=== PATIENT | female | born 1940 | race African-American/Black ===

== ENCOUNTER 2022-11-01 15:59 | Emergency (ER) | payer OTHER ==
[~2022-11-01] VITALS: Ht 157.5 cm; Wt 91.0 kg
[2022-11-01] MEDS ORDERED: SODIUM CHLORIDE 0.9% 1,000 ML IV ONE (17:30)
[2022-11-01 17:33] LABS: BASOPHILS % 0.6 % (0.0-2.0); EOSINOPHILS % 1.1 % (0.0-5.0); HEMOGLOBIN. 9.2 g/dL (12.0-16.0); LYMPHOCYTES % 10.1 % (20.0-50.0); MEAN CORPUSCULAR HEMOGLOBIN 27.7 pg (28.0-32.0); MEAN CORPUSCULAR VOLUME 86.8 fL (81.0-99.0); MEAN PLATELET VOLUME 9.2 fl (7.4-10.4); MONOCYTES % 6.8 % (2.0-8.0); NEUTROPHILS % 81.4 % (40.0-76.0); PLATELET 233 x1000/uL (130-400); RED BLOOD CELL COUNT 3.34 mill/uL (4.2-5.4); RED CELL DISTRIBUTION WIDTH 13.6 % (11.6-14.6)
[2022-11-01 17:40] LABS: CHLORIDE 102 mEq/L (98-107)
[2022-11-01 17:49] LABS: B-HCG QUANTITATIVE < 1 mIU/mL (<3)
[2022-11-01 18:17] LABS: CLARITY URINE TURBID (CLEAR); COLOR URINE YELLOW (YELLOW); KETONES URINE NEGATIVE (NEGATIVE); LEUKOCYTE ESTERASE URINE 3+ (NEGATIVE); NITRITE URINE POSITIVE (NEGATIVE); OCCULT BLOOD URINE 1+ (NEGATIVE); PH URINE 5.5 (4.5-8.0); PROTEIN URINE 3+ (NEGATIVE); SPECIFIC GRAVITY URINE 1.011 (1.005-1.030); UROBILINOGEN URINE 0.2 E.U./dL (0.2-1.0)
[2022-11-01] MEDS ORDERED: FUROSEMIDE 100MG/10ML VIAL IV STA (20:11)
[2022-11-01] MEDS ORDERED: SODIUM BICARBONATE 8.4% 1 MEQ/ML 50ML SYR IV ONE (20:15)
[2022-11-01] MEDS ORDERED: ALBUTEROL (0.083%) 2.5MG/3ML NEB HHN ONE (20:15)
[2022-11-01] MEDS ORDERED: SODIUM POLYSTYRENE SULFONATE 15 G/60 ML BOT PO ONE (20:15)
[2022-11-01] MEDS ORDERED: INSULIN REGULAR (HUMULIN R) 300UNITS/3ML VIAL IV ONE (20:15)
[2022-11-01] MEDS ORDERED: CALCIUM CHLORIDE 1GM/10ML SYR IV ONE (20:15)
[2022-11-01] MEDS ORDERED: CEFTRIAXONE 1GM PREMIX 50 ML IV ONE (20:15)
[2022-11-01] MEDS ORDERED: DEXTROSE 50% WATER 50ML SYRINGE IV ONE (20:15)
[2022-11-01] MEDS ORDERED: FUROSEMIDE 40MG/4ML VIAL IV NR (20:30)
[2022-11-02] VITALS: BP 143/68
== END 2022-11-02 01:17 | disposition short-term general hospital (02) ==
LOC: ER 15:59
DX: N39.0 Urinary tract infection, site not specified (principal); E87.5 Hyperkalemia; I10 Essential (primary) hypertension; E11.9 Type 2 diabetes mellitus without complications; Z88.0 Allergy status to penicillin; Z20.822 Contact with and (suspected) exposure to COVID-19
CPT/HCPCS: 36415; 76830; 76856; 80048; 80053; 81003; 84702; 85025; 86850; 86900; 86901; 87086; 87186; 87426; 96374; 96375; 99285; C1893; C9803; J0696; J1815; J1940; J3490; J7030